=== PATIENT | female | born 1975 | race Caucasian/White ===

== ENCOUNTER 2020-08-16 12:25 | Outpatient (CLI) | payer OTHER, SELFPAY ==
--- NOTE | 2020-08-16 12:55 | MM_ITS ---
WS: [id number] BILATERAL DIGITAL SCREENING MAMMOGRAPHY WITH CAD CLINICAL INFORMATION: SCREEN HISTORY: Screening mammogram. No current complaints. COMPARISON: 2016 TECHNIQUE: Bilateral CC and MLO views. FINDINGS: The breasts are composed of heterogeneous fibroglandular density tissue, which can limit the detectio n of small underlying mass lesions. No suspicious mass, asymmetry, calcifications, or architectural d istortion. No evidence of malignancy. MM/[place] [id number] IMPRESSION: BI-RADS: 1-Negative FOLLOW UP: 1 Year Follow-up Recommend return to annual screening mammography.
== END 2020-08-16 12:26 | disposition home or self-care (01) ==
LOC: RADSHAW 12:29
PROVIDERS: PCP Nurse Practitioner Family; Visit Provider Nurse Practitioner Family
DX: Z12.31 Encounter for screening mammogram for malignant neoplasm of breast (principal)
CPT/HCPCS: 77067

== ENCOUNTER 2021-04-26 11:29 | Inpatient (IN) | payer SELFPAY ==
[2021-04-26] VITALS (18 sets, daily range): BP systolic 100–137; BP diastolic 53–78; PULSE 88–118; RESP 15–18; TEMP 36.6–37.2; O2SAT 96–100
--- NOTE | 2021-04-26 12:29 | W.ED.GENADLT ---
HPI - General Adult General: Chief complaint: Vaginal Bleeding Stated complaint: HEAVY VAGINAL BLEEDING SINCE 04.08.21 Time Seen by Provider: 04/26/21 12:02 History of Present Illness: HPI narrative: Patient is a 45-year-old female presents emergency room with heavy vaginal bleeding since 04/16/2021. No prior hx of menorrhagia. Her period began at 04/09 has not resolved. Around 04/16/2021, patient has noted that she was going through more than 8 pads a day. Patient's bleeding has not improved. Patient feels lightheaded, mildly short of breath and came to the emergency room for evaluation. She is not on any blood thinner. Patient denies any urinary symptoms, abdominal complaints, nausea/vomiting, melena/hematochezia, hemoptysis, or other source of bleeding. No family history of coagulopathy. Onset: heavy bleeding since 04/16/2021 Duration:ongoing Location:home Severity:moderate/severe Review of Systems Narrative: Constitutional: No fever, no chills. HEENT: No vision changes CV: No chest pain, no palpitations PULM: no cough, no dyspnea. GI: No abdominal pain, no N/V/D. : No dysuria, +vaginal bleeding MSKEL: No muscle pain SKIN: No new rashes, no lesions. NEURO: No headache, no focal weakness. HEME: No visible bruises PSYCH: Normal mood Physical Exam Narrative: EXAM NARRATIVE: Head: Atraumatic Eyes: PERRL, conjunctiva without injection, +pale conjunctiva ENT: Mucous membrane moist NECK: Supple, ROM intact LUNGS: LCTAB, no crackles/rhonchi CV: Sinus tachycardia ABDN: Soft, nontender in all quadrants EXTREMITY: Normal ROM SKIN: No rash or erythema NEURO: Awake and alert, no focal motor deficits PSYCH: Normal mood and affect : Exam supervised by Alexandra. + Small trickle of blood emanating from cervical os, blood clots visualized in vaginal vault, no active source of bleeding Course Vital Signs: Vital signs: Vital Signs Temperature 98.1 F 04/26/21 11:54 Pulse Rate 94 04/26/21 13:55 Respiratory Rate 17 04/26/21 13:55 Blood Pressure 137/72 04/26/21 13:55 Pulse Oximetry 100 04/26/21 13:55 MDM - General Adult MDM Narrative: Medical decision making narrative: 45-year-old female presents emergency room for evaluation of heavy vaginal bleeding since 04/16/2021. On exam, patient appears to be pale and noted to be tachycardic to the 110s. Hemoglobin of 3.5 today. Patient s/p 2 units of uncrossed blood Case was Dr. Winn who recommended IV conjugated 25mg. Patient has no risk factors for VTE and no hx of smoking. Disposition: OB floor Lab Data: Labs: Lab Results 04/26/21 04/26/21 04/26/21 13:20 13:20 13:20 WBC 10.9 10^3/uL H 10 ^3/uL (4.0-10.0) RBC 2.13 10^6/uL L 10 ^6/uL (4.1-5.3) Hgb 3.5 g/dL L* g/dL (11.5-15.3) Hct 13.8 % L* % (37.0-47.0) MCV 64.8 fl L fl (81-99) MCH 16.4 pg L pg (28.0-34.0) MCHC 25.4 g/dL L g/dL (30.0-36.0) RDW 20.4 % H % (12.1-15.1) Plt Count 478 10^3/cmm H 10 ^3/cmm (130-400) MPV 10.3 fL fL (7.4-10.4) Neut % (Auto) 69.9 % % Lymph % (Auto) 20.2 % % [place] % (Auto) 6.0 % % Eos % (Auto) 2.1 % % Baso % (Auto) 0.1 % % Neut # (Auto) 7.64 10^3/uL 10^3 /uL (1.8-7.7) Lymph # (Auto) 2.2 10^3/uL 10^3/ uL (0.8-4.8) [place] # (Auto) 0.7 10^3/uL 10^3/ uL (0.2-0.9) Eos # (Auto) 0.2 10^3/uL 10^3/ uL (0.0-0.8) Baso # (Auto) 0.0 10^3/uL 10^3/ uL (0.0-0.1) Nucleated RBC % (a uto) 0 % % Nucleated RBCs # 0.0 /100WBC /100W BC PT INR Sodium 136 mmol/L mmol/L (136-145) Potassium 4.1 mmol/L mmol/L (3.5-5.1) Chloride 104 mmol/L mmol/L (98-107) Carbon Dioxide 18 mmol/L L mmol/ L (22-29) Anion Gap 18.1 (5-19) BUN 9 mg/dL mg/dL (6-20) Creatinine 0.7 mg/dL mg/dL (0.5-0.9) GFR Calculation 90.9 mL/min mL/mi n (90-130) Glucose 91 mg/dL mg/dL (65-115) Calculated Osmolal ity 280 mOsm/kg L mOs m/kg (285-295) Calcium 8.0 mg/dL L mg/dL (8.5-10.5) HCG, Qual Negative (Negative) Blood Type Rho(D) Type Antibody Screen Crossmatch 04/26/21 04/26/21 13:20 13:20 WBC RBC Hgb Hct MCV MCH MCHC RDW Plt Count MPV Neut % (Auto) Lymph % (Auto) [place] % (Auto) Eos % (Auto) Baso % (Auto) Neut # (Auto) Lymph # (Auto) [place] # (Auto) Eos # (Auto) Baso # (Auto) Nucleated RBC % (a uto) Nucleated RBCs # PT 14.50 SECONDS SEC ONDS (12.1-14.9) INR 1.09 (0.8-1.2) Sodium Potassium Chloride Carbon Dioxide Anion Gap BUN Creatinine GFR Calculation Glucose Calculated Osmolal ity Calcium HCG, Qual Blood Type A Negative Rho(D) Type Negative Antibody Screen Negative Crossmatch See Detail Discharge Plan Discharge Prescriptions: No Action Euthyrox 75 mcg tablet 75 mcg PO DAILY RF: 0 pantoprazole 40 mg tablet,delayed release (DR/EC) 40 mg PO DAILY RF: 0 zolpidem 10 mg tablet 10 mg PO BEDTIME PRN (Reason: Insomnia) RF: 0 albuterol sulfate 90 mcg/actuation HFA aerosol inhaler 2 puff INHALATION Q6H PRN (Reason: Shortness Of Breath) RF: 0 Coding Level of Care Code ED 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
[2021-04-26] MEDS: sodium chloride 0.9% 1,000 ML 999 ML IV ×2 (13:50→13:52)
[2021-04-26 13:54] LABS: Basophils % 0.1 %; Eosinophils # 0.2 10^3/uL (0.0-0.8); Eosinophils % 2.1 %; Lymphocytes # 2.2 10^3/uL (0.8-4.8); Lymphocytes % 20.2 %; Mean Corpuscular HGB Conc 25.4 g/dL (30.0-36.0); Mean Corpuscular Hemoglobin 16.4 pg (28.0-34.0); Mean Corpuscular Volume 64.8 fl (81-99); Mean Platelet Volume 10.3 fL (7.4-10.4); Monocytes # 0.7 10^3/uL (0.2-0.9); Neutrophils # 7.64 10^3/uL (1.8-7.7); Neutrophils % 69.9 %; Nucleated Red Blood Cells % 0 %; Platelet Count 478 10^3/cmm (130-400); Red Blood Count 2.13 10^6/uL (4.1-5.3); Red Cell Distribution Width 20.4 % (12.1-15.1); White Blood Count 10.9 10^3/uL (4.0-10.0)
[2021-04-26 14:06] LABS: INR 1.09 (0.8-1.2)
[2021-04-26 14:11] LABS: HCG, Serum Qual Negative (Negative)
[2021-04-26 14:12] LABS: Hematocrit 13.8 % (37.0-47.0); Hemoglobin 3.5 g/dL (11.5-15.3)
[2021-04-26 14:13] LABS: Anion Gap 18.1 (5-19); Blood Urea Nitrogen 9 mg/dL (6-20); Carbon Dioxide 18 mmol/L (22-29); Chloride 104 mmol/L (98-107); Glomerular Filtration Rate 90.9 mL/min (90-130); Glucose 91 mg/dL (65-115); Osmolality Calculated 280 mOsm/kg (285-295); Potassium 4.1 mmol/L (3.5-5.1); Sodium 136 mmol/L (136-145)
--- NOTE | 2021-04-26 14:15 | USR_ITS ---
PROCEDURE INFORMATION: Exam: US Pelvis, Transvaginal Exam date and time: 04/26/2021 2:15 PM Age: 45 years old Clinical indication: Menstruation abnormalities; Other: Vaginal bleeding since 04-08-2021; Additional info: Eval for uterus TECHNIQUE: Imaging protocol: Real-time transvaginal pelvic ultrasound with image documentation. Transvaginal imaging was used for better evaluation of the endometrium, adnexa, and/or cervix. COMPARISON: No relevant prior studies available. FINDINGS: Uterus: Uterus is normal. Endometrial stripe is heterogenous and measures 2 cm. This finding is nonspecific or The uterus measures 11 cm x 5.6 cm x 5.7 cm Right ovary/adnexa: Not identified Left ovary/adnexa: Not identified Intraperitoneal space: No free fluid. US/US transvaginal [id number] IMPRESSION: 1. Thickened heterogenous endometrial tissues. 2. Otherwise negative uterine myometrium 3. The ovaries are not visible
[2021-04-26] MEDS: ondansetron 2 mg/ML SDV 2 mL 8 MG IVP (15:09)
[2021-04-26] MEDS: sodium chloride 0.9% 100 mL Bag 50 ML IV (15:09)
[2021-04-26] MEDS: estrogens Conjugated 25 mg/5 mL SDV IVP (15:32)
[2021-04-26 16:31] LABS: Partial Thromboplastin Time 19.4 SECONDS (23.9-36.7)
--- NOTE | 2021-04-26 17:45 | PM.OBGYHP ---
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 Cruz is a 45-year-old 2 para 2-0-0-2 with an LMP of 04/08/2021 who presents to the emergency room on 04/26/2021 with reports of feeling tired, shortness of breath and heavy vaginal bleeding. She states that her previous. Was in February as scheduled. She always bleeds very heavy lasting for 5 to 6 days and usually goes for about a pad an hour for the first 2 or 3 days. She has a lot of cramping and was placed on naproxen for this and she felt like this did help the extent of her bleeding. When she started her cycle as scheduled on 04/08/2021 it was different because it was much perfect binder setter with a lot of spotting however from about 04/16/2021 she started to have very heavy bleeding with about 1 pad an hour. When her bleeding did not get better and she started to feel tired and shortness of breath she came in for evaluation. She states that she and her primary care provider were evaluating her bleeding however she had not had any lab work or anything done in terms of its evaluation Review of Systems General: Reports: 10 or more systems reviewed and unremarkable except in HPI and below Const: Reports: fatigue; Denies: fever(s), chills, change in appetite, change in weight, malaise or change in sleep pattern Eyes: Denies: change in vision, eye discomfort, eye discharge or seeing flashes ENMT: Denies: throat pain, odynophagia, hoarseness, bleeding gums, ear discharge, nasal discharge or nasal congestion Card: Denies: chest pain, irregular heart rhythm, edema, swelling of feet/ankles, dyspnea on exertion or leg pain with exertion Resp: Denies: dyspnea, productive cough, wheezing or chest congestion GI: Reports: abdominal pain and nausea; Denies: vomiting, heartburn, diarrhea, constipation, change in bowel habits or hematochezia : Reports: vaginal bleeding and dysmenorrhea; Denies: flank pain, dysuria, urinary frequency, urinary urgency, urinary incontinence, genital lesions, vaginal odor, vaginal discharge, change in menstrual flow, prolapse symptoms, dyspareunia or sexual dysfunction Musc: Denies: neck pain, back pain, joint pain, joint swelling or muscle cramps Skin/Breast: Denies: rash, pruritus, breast tenderness, nipple discharge or breast mass Neuro: Denies: headache(s), numbness in extremities or seizure-like activity Psych: Denies: anxiety, depression, mood swings or change in appetite Endo: Denies: cold intolerance, flushing, hot flashes or change in body appearance Buddy/Lymph: Denies: easy bruising, easy bleeding or enlarged lymph nodes All/Imm: Denies: urticaria, tongue swelling, acute wheezing or itchy eyes Medications/Allergies Home Medications Medication Instructions Recorded Confirmed Last Taken Type albuterol sulfate 2 puff INHALATION Q6H PRN 04/26/21 04/26/21 Unknown History levothyroxine [Euthyrox] 75 mcg PO DAILY 04/26/21 04/26/21 04/26/21 History pantoprazole 40 mg PO DAILY 04/26/21 04/26/21 04/26/21 History zolpidem 10 mg PO BEDTIME PRN 04/26/21 04/26/21 Unknown History Allergies Allergy/AdvReac Type Severity Reaction Status Date / Time No Known Allergies Allergy Verified 04/26/21 11:57 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 She states that since her mid 30s her cycles have been very heavy with passing clots and lots of cramping but she has never had this evaluated before. Sexual History: Sexual History Comment: [place] STD History Comment: Denies history of sexually transmitted infections in the past Contraception: Contraception History Comment: Did use Depo-Provera between her pregnancies for about 1 year and she remained amenorrheic on this. -Has not used any hormones since her had a vasectomy History History History 2 Term 2 Miscarriages/Ectopic 0 0 Living Children 2 Other History: CD X 2() Vitals/I&O/Wt Last Vital Signs Temp 97.9 F 04/26/21 16:00 Pulse 88 04/26/21 17:40 Resp 15 04/26/21 17:40 BP 112/58 04/26/21 17:40 Pulse Ox 98 04/26/21 17:40 04/26/21 04/26/21 04/26/21 06:59 14:59 22:59 Intake Total 1000 / 1000 1700 / 2700 Balance 1000 / 1000 1700 / 2700 Weight last 48 hrs Weight 200 lb Physical Exam Narrative: EXAM NARRATIVE: General: well developed, well nourished, in no acute distress Neuro/Psych: alert, oriented to time, place and person. Neck: Deferred Heart: S1-S2 heard, regular rate and rhythm. Lungs: Clear to auscultation bilaterally. Breast: Deferred Abdomen: Soft, obese, nontender, no rebound, no guarding, hepatosplenomegaly, no umbilical hernia Legs: No pedal edema no calf tenderness. Negative Homans sign Back: No CVA tenderness Skin: Normal over abdomen, well-healed Pfannenstiel scar noted External genitalia: Appears normal, no lesions, normal hair Urethral meatus: Normal size, normal location Urethra: Nontender, no masses Bladder: Nontender Vagina: Appears normal, normal estrogen, no lesion, slow trickle of blood from cervix, no lesions Cervix: Appears normal, no CMT, no discharge Uterus: 8 to 10 weeks, anteverted, mobile, nontender Adnexa: No obvious adnexal masses or tenderness-exam limited by patient body habitus. Perineum/anus: Intact Rectum: Deferred Data : 04/27/21 03:05 04/26/21 13:20 Results SOLDERER DIPPER Labs 04/26/2021([facility])--CBC-10.9> 3.5/13.8>478-----> received 4 units of PRBC 04/27/2021([facility])-follow-up CBC posttransfusion---12.7<8.9/29.6> 389 PAP Denies history of abnormal Pap smears in the past SOLDERER DIPPER Ultrasound 1) 04/26/2021([facility]/ED-AUB and anemia) ------> the uterus is heterogenous measuring 11 x 5.6 x 5.7 cm. Bilateral ovaries are not seen. No free fluid noted. The endometrium appears heterogenous measuring 2 cm. Mammogram 08/16/2020 -----([facility])----> BI-RADS 1. Negative. Recommend annual screening mammogram Colonoscopy Has never needed a colonoscopy A&P Assessment and plan (1) Abnormal uterine bleeding (AUB): -Discussed with patient and her the on exam today that she is not really actively bleeding. The estrogen that she is received looks like it is working. Her immediate concern is her anemia and she will need to stay to get transfused. I would like her to stay n.p.o. for now and should she start bleeding heavily she may need surgery. - Discussed surgery of dilation and curettage and discussed with her this should help her bleeding. Discussed hysterectomy would be a last option as we never want to do this in an emergent fashion. Discussed risks of D&C-bleeding, infection, anesthesia risk, damage to surrounding organs and possible uterine perforation, possible laparoscopy, etc. we will sign consents just in case she needs to have surgery but I anticipate that as long as her bleeding stays under control like aspirin we should not have to have surgery -Admit to observation and as long as her bleeding is under control anticipate discharge home tomorrow. -N.p.o. for now until we assess how her bleeding is doing -She may need 1 more dose of IV estrogen. Risks of IV estrogen discussed with patient including risk of DVT PE stroke etc. Zofran as needed for nausea -Depending on the extent of her bleeding we may transition to p.o. estrogen. -Strict pad count, strict I's and O's, bedrest with bathroom privileges with assist -Frequent vital signs although they are normal for someone who is so anemic. -All her questions were answered and she agrees with the current plan of care. I spent 45 minutes with the patient in discussion and counseling as documented above This documentation was created by [employer] rug cleaner helper software (known for inherent rug cleaner helper error). Every effort was made to assure accuracy of rug cleaner helper. Any obvious errors or omissions should be clarified with the author of the document. Status: Acute (2) Anemia: -Patient is already received 2 units of blood by the time I saw her. She is doing well with this. Discussed that I would recommend a total of at least 4 of 5 units of blood to bring her hemoglobin decreased to 8. Discussed that after 4 units of blood I would repeat levels to see where she is at. Discussed that she will more than likely need to be on iron upon discharge and she will need follow-up blood work to ensure these levels are normal. -We will follow up hemoglobin after transfusion -Crossmatched 3 additional units of blood and transfuse 2 of these. Status: Acute Attestations Medical Necessity Statement*: Patient will need to stay for 1 midnight to observe bleeding Coding Level of Care Code Acute Digital Associate Media Director for [facility] Diagnoses Abnormal uterine bleeding (AUB) N93.9 Anemia D64.9
[2021-04-26] MEDS: promethazine 25 mg/mL SDV 1 mL IM (19:23)
[2021-04-26] MEDS: HYDROcodone-acetaminophen 5-325 mg Tablet 1 TAB PO (19:24)
--- NOTE | 2021-04-26 21:04 | PC.NURSE ---
patient had a small sip of water to take her pain medication with.
[2021-04-26] MEDS: zolpidem 5 mg Tablet 10 MG PO (22:02)
[2021-04-26] MEDS: dextrose 5%-lactated ringers 1,000 ML 100 ML IV (22:30)
[2021-04-27] VITALS (8 sets, daily range): BP systolic 103–121; BP diastolic 63–73; PULSE 80–96; RESP 15–18; TEMP 36.6–36.8; O2SAT 96–97
[2021-04-27 03:35] LABS: Basophils # 0.1 10^3/uL (0.0-0.1); Basophils % 0.7 %; Eosinophils # 0.3 10^3/uL (0.0-0.8); Eosinophils % 2.7 %; Hematocrit 29.6 % (37.0-47.0); Hemoglobin 8.9 g/dL (11.5-15.3); Lymphocytes # 2.4 10^3/uL (0.8-4.8); Lymphocytes % 19.1 %; Mean Corpuscular HGB Conc 30.1 g/dL (30.0-36.0); Mean Corpuscular Hemoglobin 23.7 pg (28.0-34.0); Mean Corpuscular Volume 78.9 fl (81-99); Mean Platelet Volume 10.1 fL (7.4-10.4); Monocytes # 0.7 10^3/uL (0.2-0.9); Monocytes % 5.3 %; Neutrophils # 9.04 10^3/uL (1.8-7.7); Neutrophils % 71.1 %; Nucleated Red Blood Cells % 0 %; Platelet Count 389 10^3/cmm (130-400); Red Blood Count 3.75 10^6/uL (4.1-5.3); Red Cell Distribution Width 26.3 % (12.1-15.1); White Blood Count 12.7 10^3/uL (4.0-10.0)
--- NOTE | 2021-04-27 05:44 | PC.NURSE ---
patient has had 4 pad changes with scant bleeding. patient has also passed 3 quarter sized clots. one at 0150, one at 0330 and another at 0430. md aware.
--- NOTE | 2021-04-27 12:14 | P.DS_ITS ---
Discharge Providers PORTABLE TRACK LINE MARKER Date of Admission: 04/26/21 14:55 Date of Discharge: 04/27/21 Attending Provider at Admission: Leti Burrows MD Attending Provider at Discharge: Leti Burrows MD Primary Care Provider: Short stay summary: Ms. Cruz is a 45-year-old 2 para 2-0-0-2 with an LMP of 04/08/2021 who presents to the emergency room on 04/26/2021 with reports of feeling tired, shortness of breath and heavy vaginal bleeding. She states that her previous. Was in February as scheduled. She always bleeds very heavy lasting for 5 to 6 days and usually goes for about a pad an hour for the first 2 or 3 days. She has a lot of cramping and was placed on naproxen for this and she felt like this did help the extent of her bleeding. When she started her cycle as scheduled on 04/08/2021 it was different because it was much herd tester with a lot of spotting however from about 04/16/2021 she started to have very heavy bleeding with about 1 pad an hour. When her bleeding did not get better and she started to feel tired and shortness of breath she came in for evaluation. She states that she and her primary care provider were evaluating her bleeding however she had not had any lab work or anything done in terms of its evaluation. In the emergency room she received 2 units of PRBCs and received a single dose of IV estrogen 25 mg. Strict blood count was started and she had just minimal bleeding. Pain was well-controlled without any medication and she did receive Zofran for nausea. She was then transferred onto the [facility] floor where she received an additional 2 units of PRBCs. CBC 4 hours later after 4 units of PRBCs showed a hemoglobin of 8.9. Vital signs were stable and she denied dizziness shortness of breath and chest pain. She tolerated regular diet and was ambulating well and had adequate urine output. She was discharged home on 04/27/2021 with instructions to take Glenda 05/15 in a tapering fashion-2 pills a day for 5 days followed by 1 pill to complete the pack followed by a pill free timeframe of 5 days and then starting the second pack. She will follow up with me as an outpatient in 3 weeks. Patient to maintain a strict menstrual calendar and pad count. And bring this to her next visit. Message sent to the clinic to get patient scheduled in 3 weeks. -Pelvic rest until cleared by me-no other restrictions -Emergency room precautions reviewed-cardiovascular risks of estrogen-containing hormones discussed with patient and ER precautions reviewed. Diagnoses at Discharge Discharge Diagnosis (1) Abnormal uterine bleeding (AUB): Status: Acute (2) Anemia: Status: Acute Reason for Visit Reason for Visit: HEAVY VAGINAL BLEEDING SINCE 04.08.21 History History History 2 Term 2 Miscarriages/Ectopic 0 0 Living Children 2 Other History: CD X 2() Discharge Data Data Completed and Pending: Completed Studies During Hospitalization Category Date Time Status US transvaginal 7 [id number] Urgent Ultrasound 04/26/21 14:15 Completed Pending at discharge Category Date Time Status Leukocyte Reduced RBC Routine Lab 04/26/21 13:20 Results Type and Screen R outine Lab 04/26/21 13:20 Results Labs from last 24 hours 04/27/21 04/26/21 04/26/21 03:05 13:20 13:20 WBC 12.7 H RBC 3.75 L Hgb 8.9 L D Hct 29.6 L D MCV 78.9 L D MCH 23.7 L D MCHC 30.1 D RDW 26.3 H Plt Count 389 MPV 10.1 Neut % (Auto) 71.1 Lymph % (Auto) 19.1 [place] % (Auto) 5.3 Eos % (Auto) 2.7 Baso % (Auto) 0.7 Neut # (Auto) 9.04 H Lymph # (Auto) 2.4 [place] # (Auto) 0.7 Eos # (Auto) 0.3 Baso # (Auto) 0.1 Nucleated RBC % (a uto) 0 Nucleated RBCs # 0.0 PT 14.50 INR 1.09 APTT 19.4 L Sodium Potassium Chloride Carbon Dioxide Anion Gap BUN Creatinine GFR Calculation Glucose Calculated Osmolal ity Calcium HCG, Qual Blood Type A Negative Rho(D) Type Negative Antibody Screen Negative Crossmatch See Detail 04/26/21 04/26/21 04/26/21 13:20 13:20 13:20 WBC 10.9 H RBC 2.13 L Hgb 3.5 L* Hct 13.8 L* MCV 64.8 L MCH 16.4 L MCHC 25.4 L RDW 20.4 H Plt Count 478 H MPV 10.3 Neut % (Auto) 69.9 Lymph % (Auto) 20.2 [place] % (Auto) 6.0 Eos % (Auto) 2.1 Baso % (Auto) 0.1 Neut # (Auto) 7.64 Lymph # (Auto) 2.2 [place] # (Auto) 0.7 Eos # (Auto) 0.2 Baso # (Auto) 0.0 Nucleated RBC % (a uto) 0 Nucleated RBCs # 0.0 PT INR APTT Sodium 136 Potassium 4.1 Chloride 104 Carbon Dioxide 18 L Anion Gap 18.1 BUN 9 Creatinine 0.7 GFR Calculation 90.9 Glucose 91 Calculated Osmolal ity 280 L Calcium 8.0 L HCG, Qual Negative Blood Type Rho(D) Type Antibody Screen Crossmatch Vitals: Last Vital Signs Temp 97.8 F 04/27/21 09:57 Pulse 80 04/27/21 10:30 Resp 16 04/27/21 10:30 BP 120/70 04/27/21 10:30 Pulse Ox 97 04/27/21 06:00 Results CORRECTIONAL SUPERVISING COOK Labs 04/26/2021([facility])--CBC-10.9> 3.5/13.8>478-----> received 4 units of PRBC 04/27/2021([facility])-follow-up CBC posttransfusion---12.7<8.9/29.6> 389 [employer]RECTIONAL SUPER[employer]ING [employer]OOK Ultrasound 1) 04/26/2021([facility]/ED-AUB and anemia) ------> the uterus is heterogenous measuring 11 x 5.6 x 5.7 cm. Bilateral ovaries are not seen. No free fluid noted. The endometrium appears heterogenous measuring 2 cm. Discharge Plan Discharge Patient Disposition: Home Condition: Stable Prescriptions: 05/15 (21) 1-20 mg-mcg tablet 1 tab PO DAILY Qty: 21 RF: 1 ferrous sulfate 325 mg (65 mg iron) tablet 325 mg PO BID Qty: 30 RF: 0 Continued Euthyrox 75 mcg tablet 75 mcg PO DAILY RF: 0 pantoprazole 40 mg tablet,delayed release (DR/EC) 40 mg PO DAILY RF: 0 zolpidem 10 mg tablet 10 mg PO BEDTIME PRN (Reason: Insomnia) RF: 0 albuterol sulfate 90 mcg/actuation HFA aerosol inhaler 2 puff INHALATION Q6H PRN (Reason: Shortness Of Breath) RF: 0 Discharge Orders: Discharge Order (Routine); Ordered 04/27/21 Ordered By: Leti Burrows Referrals: Leti Burrows MD [Physician] - Discharge Diet: Regular Discharge Activity: Limit activity as instructed Patient Instructions: Opioid Safety Activity Restrictions/Additional Instructions: Pelvic rest until cleared by me, emergency room precautions reviewed-strict menstrual calendar and pad count Discharge Attestations PORTABLE TRACK LINE MARKER Time Spent in Discharge Care*: greater than 30 min Coding Level of Care Code Acute Motor Boss for g Fwd Diagnoses Abnormal uterine bleeding (AUB) N93.9 Anemia D64.9
== END 2021-04-27 12:45 | disposition home or self-care (01) | DRG 760 ==
LOC: ER 12:09 → OBGYN 16:00
PROVIDERS: Admitting Provider Obstetrics & Gynecology; Emergency Provider Emergency Medicine; PCP Nurse Practitioner Family; Visit Provider Obstetrics & Gynecology
DX: N93.9 Abnormal uterine and vaginal bleeding, unspecified (principal); D62 Acute posthemorrhagic anemia; E03.9 Hypothyroidism, unspecified; K21.9 Gastro-esophageal reflux disease without esophagitis
CPT/HCPCS: 36415; 36430; 76830; 80048; 84703; 85025; 85610; 85730; 86850; 86900; 86920; 96372; 96374; 96376; 99285; J1410; J2405; J2550; J7030; P9016

== ENCOUNTER → 2021-06-25 12:05 | Outpatient (BNVA) | payer OTHER, SELFPAY | PROVIDERS: PCP Nurse Practitioner Family; Visit Provider Obstetrics & Gynecology | DX: N93.9 Abnormal uterine and vaginal bleeding, unspecified (principal) | CPT/HCPCS: 76830 ==

== ENCOUNTER → 2021-07-01 12:55 | Outpatient (BNVA) | payer OTHER, SELFPAY | PROVIDERS: PCP Nurse Practitioner Family; Visit Provider Obstetrics & Gynecology | DX: N93.9 Abnormal uterine and vaginal bleeding, unspecified (principal) | CPT/HCPCS: 87624 ==

== ENCOUNTER 2021-09-05 11:38 | Outpatient (CLI) | payer OTHER, SELFPAY ==
--- NOTE | 2021-09-05 11:44 | MM_ITS ---
WS: [id number] BILATERAL SCREENING DIGITAL BREAST TOMOSYNTHESIS MAMMOGRAM WITH CAD HISTORY: SCREENING COMPARISON: 08/16/2020, 10/29/2016 and 07/25/2014 Bilateral CC and MLO views with tomosynthesis and synthetic mammography submitted. Computer aided det ection analyzed. Breast composition: The breasts are extremely dense, which lowers the sensitivity of mammography. No suspicious masses, microcalcifications or architectural distortion. Dense asymmetry in each breast. N o underlying mass is noted on the tomosynthesis. MM/[place] [id number] IMPRESSION: BI-RADS: 2-Benign FOLLOW UP: 1 Year Follow-up
== END 2021-09-05 11:39 | disposition home or self-care (01) ==
LOC: RAD 11:40
PROVIDERS: PCP Nurse Practitioner Family; Visit Provider Obstetrics & Gynecology
DX: Z12.31 Encounter for screening mammogram for malignant neoplasm of breast (principal)
CPT/HCPCS: 77063; 77067

== ENCOUNTER 2022-05-19 13:07 | Observation (INO) | payer OTHER, SELFPAY ==
[2022-05-15 09:52] VITALS: BMI 33.5
[2022-05-15 10:50] LABS: Basophils % 0.4 %; Eosinophils # 0.2 10^3/uL (0.0-0.8); Eosinophils % 2.3 %; Lymphocytes # 1.3 10^3/uL (0.8-4.8); Lymphocytes % 17.2 %; Mean Corpuscular HGB Conc 31.7 g/dL (30.0-36.0); Mean Corpuscular Hemoglobin 28.7 pg (28.0-34.0); Mean Corpuscular Volume 90.5 fl (81-99); Mean Platelet Volume 10.3 fL (7.4-10.4); Monocytes # 0.4 10^3/uL (0.2-0.9); Monocytes % 5.3 %; Neutrophils # 5.61 10^3/uL (1.8-7.7); Neutrophils % 74.5 %; Nucleated Red Blood Cells % 0 %; Platelet Count 348 10^3/cmm (130-400); Red Blood Count 4.53 10^6/uL (4.1-5.3); Red Cell Distribution Width 13.2 % (12.1-15.1); White Blood Count 7.5 10^3/uL (4.0-10.0)
[2022-05-15 11:08] LABS: Anion Gap 13.1 (5-19); Blood Urea Nitrogen 10 mg/dL (6-20); Calcium 9.6 mg/dL (8.5-10.5); Carbon Dioxide 25 mmol/L (22-29); Chloride 102 mmol/L (98-107); Glomerular Filtration Rate 77.6 mL/min (90-130); Glucose 91 mg/dL (65-115); Osmolality Calculated 281 mOsm/kg (285-295); Potassium 4.1 mmol/L (3.5-5.1); Sodium 136 mmol/L (136-145)
--- NOTE | 2022-05-15 13:26 | P.ANESASSM_ITS ---
Pre-Anesthetic Assessment Height/Weight: Height 1.63 m Weight 88.451 kg Operation Date: 05/19/22 10:10 Proposed Procedures p Laparoscopic assisted vaginal hysterectomy, bilateral salpingectomy 89807 N93.9,E03.9(Not Applicable) - Viry Johnson MD s Laparoscopic Salpingectomy(Bilateral) - Viry Johnson MD Familial anesthetic complications: none Was Beta Ivy taken within 24 hours: N/A Was Clonidine taken within 24 hours: N/A Social No alcohol and No tobacco Exam alert, oriented x 3, clear to auscultation bilaterally and regular rate & rhythm Airway Submandibular: within normal limits Cervical ROM: within normal limits Mallampati: Class II Dentition: full CV/HEM Anemia GI Gastroesophageal Reflux Disease Metabolic Thyroid Disease Anesthetic Plan ASA status: 2 Anesthesia: General Medications/Allergies Home Medications Medication Instructions Recorded Confirmed Last Taken Type levothyroxine 75 mcg tablet 75 mcg PO DAILY 04/26/21 05/15/22 05/15/22 History (Euthyrox) zolpidem 10 mg tablet 10 mg PO BEDTIME PRN Insomnia 04/26/21 05/15/22 05/15/22 History pantoprazole 40 mg tablet,delayed 40 mg PO PRN PRN Acid Reflux 05/12/21 05/15/22 05/15/22 History release Allergies Allergy/AdvReac Type Severity Reaction Status Date / Time adhesive tape Allergy ALGY-Rash Verified 05/15/22 09:50 [facility] Anesthesia Medical History GERD (gastroesophageal reflux disease) Controlled on medication managed by her primary care provider -has never had an endoscopy Hypothyroidism Diagnosed in her 30s and has been on medication managed by her primary care provider. 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 Dickinson Surgical History Hx of tonsillectomy At the age of 13 S/P laparoscopic cholecystectomy 2010 Status post delivery X 2 1996, 1999 Family History Grandmother Diabetes maternal Mother Hypertension Polycythemia vera Denies family history of Colon cancer Ovarian cancer Heart disease Hyperlipidemia Breast cancer Uterine cancer Thyroid condition Stroke Female Reproductive History Date of last menstrual period: 04/08/21 Data Anesthesia 05/15/22 10:10 05/15/22 10:10 Short CBC 05/15/22 Range/Units 10:10 WBC 7.5 (4.0-10.0) 10^3/uL Hgb 13.0 (11.5-15.3) g/dL Hct 41.0 (37.0-47.0) % MCV 90.5 (81-99) fl Plt Count 348 (130-400) 10^3/cmm Neut % (Auto) 74.5 % Neut # (Auto) 5.61 (1.8-7.7) 10^3/uL BMP 05/15/22 10:10 Sodium 136 Potassium 4.1 Chloride 102 Carbon Dioxide 25 BUN 10 Creatinine 0.8 Glucose 91 Calcium 9.6 Blood Bank 05/15/22 10:10 Blood Type A Negative Rho(D) Type Negative Antibody Screen Negative Cardiac Studies: No Data to Display
[2022-05-19] VITALS (13 sets, daily range): BP systolic 107–139; BP diastolic 64–96; PULSE 60–108; RESP 15–18; TEMP 36.3–37.6; O2SAT 93–100; BMI 33.5
[2022-05-19] MEDS: scopolamine 1.5 Patch 1 PATCH TRANSDERMA (09:02)
[2022-05-19] MEDS: acetaminophen 1,000 MG/100 ML PIGGYBACK 400 MG IV (09:02)
[2022-05-19] MEDS: gabapentin 300 mg Capsule PO (09:02)
[2022-05-19] MEDS: CELEcoxib 200 mg Capsule 400 MG PO (09:02)
[2022-05-19] MEDS: phenazopyridine 100 mg Tablet 200 MG PO ×3 (09:02→21:12)
[2022-05-19] MEDS: sodium chloride 0.9% 1,000 ML 30 ML IV (09:03)
--- NOTE | 2022-05-19 10:30 | W.PM.OPSUD ---
Surgery/Procedure H&P Update DATE OF PROCEDURE: May 19, 2022 DATE H&P PERFORMED: 05/15/22 H&P UPDATE INFORMATION: I have reviewed H&P completed within last 30 days, I have examined patient prior to procedure and No changes to prior documentation PREOP DIAGNOSIS: aub, anemia PLANNED PROCEDURE: Operation Date: 05/19/22 10:10 Proposed Procedures p Laparoscopic assisted vaginal hysterectomy, bilateral salpingectomy 12492 N93.9,E03.9(Not Applicable) - Viry Johnson MD s Laparoscopic Salpingectomy(Bilateral) - Viry Johnson MD Related Problem List Diagnoses (1) Anemia: (2) Abnormal uterine bleeding (AUB):
[2022-05-19] MEDS: ceFAZolin 2,000 MG in sodium chloride 0.9% (plus) 50 ML 100 MG IV ×2 (10:42→19:26)
[2022-05-19] MEDS: vasopressin 20 unit/mL INJ INJECTION (13:26)
--- NOTE | 2022-05-19 13:44 | PM.OP ---
Operative Report Date of procedure: May 19, 2022 Pre-op diagnosis: Preop Diagnosis aub, anemia Post-op diagnosis: same Post-op findings: 11 week uterus, normal appearing tubes and ovaries. Adhesions of the left adnexa to the colon Procedure done: LAVH. bilateral salpingectomy Specimens removed/disposition: Uterus and bilateral fallopian tubes to pathology Surgeon: Viry Johnson Anesthesia: General Estimated blood loss (mL): 200 IV fluids (mL): 1,300 Urine output (mL): 400 Complications: none Condition: stable Disposition: PACU Procedure: The patient was taken to the operating room where general anesthesia was administered and found to be adequate. She was prepped and draped in the normal sterile fashion in the dorsal lithotomy position in [facility]. A Mathias catheter was placed. A weighted speculum was placed into the vagina and the anterior lip of the cervix was grasped with a single tooth tenaculum. The Zumi uterine manipulator was placed. The weighted speculum was removed. The gloves were changed and attention was turned to the abdomen. A 5 mm supraumbilical incision was made. Using a 5 mm port with the camera, the port was placed into the abdomen. The abdomen was insufflated. Two low, lateral 5 mm ports were placed on the left and right under direct visualization from the camera. The right tube was grasped and elevated. Using the laparoscopic cautery, the mesosalpinx was divided between the ovary and tube. The tube was removed. On the left, the scissors were used to free the tube and ovary from the bowel. Then the same procedure was performed on the left. The uteroovarian ligaments as well as the round ligaments were ligated. Attention was then turned to the vaginal portion of the procedure. The weighted speculum was placed into the vagina. The zumi manipulator was removed. The single tooth tenaculum was removed and replaced with the lana's tenaculum. 10 mL of dilute Pitressin was injected at the vesicovaginal junction. A circumferential incision was made at the vesicovaginal junction and the vaginal mucosa reflected cephalad. The posterior peritoneum was entered sharply with the Metzenbaum scissors and the long weighted speculum replaced. Using the Matthew clamps the uterosacral ligaments were clamped cut and suture-ligated. The anterior peritoneum was entered sharply with the metzenbaum scissors. Then sequentially the uterine arteries and cardinal ligaments were clamped cut and suture-ligated. A single-tooth tenaculum was used to deliver the uterus. The remaining segement of the utero-ovarian ligaments were clamped cut and suture-ligated bilaterally and the specimen was removed. There was good hemostasis with only mild bleeding from the cuff. The peritoneum was closed with a pursestring using 2-0 Vicryl. The vaginal cuff was closed with 0 Vicryl in a running locked pattern incorporating the uterosacral ligaments into the lateral aspects of the vaginal cuff. The Mathias catheter was removed and the cystoscope advanced into the bladder. The patient was given pyridium and bilateral spill was noted. There were no injuries or deficits noted in the bladder. The cystoscope was removed and the Mathias was replaced. Vaginal packing was placed for good hemostasis. The gloves and gowns were changed and attention was turned to the abdomen. A second look showed no active bleeding in the abdomen and pelvis. The ports were closed with 2-0 monocryl with skin glue. The patient tolerated the procedure well. Sponge lap and needle counts were correct x3. She was taken to the recovery room in stable condition.
[2022-05-19] MEDS: dextrose 5%-lactated ringers 1,000 ML 125 ML IV ×2 (14:48→23:06)
[2022-05-19] MEDS: ketorolac 30 mg/mL INJ IVP ×2 (14:48→20:17)
--- NOTE | 2022-05-19 15:53 | ANE.PACU2 ---
Inpatient post-anesthesia follow up: Airway intact: Yes Vital signs: Temperature 98.3 F Pulse Rate 95 Respiratory Rate 16 Blood Pressure 122/64 Pulse Oximetry 93 Oxygen Delivery Me thod Room Air Oxygen Flow Rate 6 Fraction of Inspir ed Oxygen Hydration adequate: Yes Nausea and vomiting: No Pain level: 1 Mental status: Baseline
[2022-05-19] MEDS: HYDROcodone-acetaminophen 5-325 mg Tablet PO (17:51)
[2022-05-19] MEDS: docusate sodium 100 mg Capsule PO (17:52)
[2022-05-19] MEDS: ondansetron 2 mg/ML SDV 2 mL 4 MG IVP (20:17)
[2022-05-19] MEDS: zolpidem 5 mg Tablet 10 MG PO (21:12)
[2022-05-20 00:05] VITALS: BP 120/74; PULSE 88; RESP 15
[2022-05-20] MEDS: ketorolac 30 mg/mL INJ IVP (01:53)
[2022-05-20] MEDS: ceFAZolin 2,000 MG in sodium chloride 0.9% (plus) 50 ML 100 MG IV (02:52)
[2022-05-20 05:22] LABS: Hematocrit 37.3 % (37.0-47.0); Hemoglobin 11.9 g/dL (11.5-15.3); Mean Corpuscular HGB Conc 31.9 g/dL (30.0-36.0); Mean Platelet Volume 10.2 fL (7.4-10.4); Platelet Count 314 10^3/cmm (130-400); Red Cell Distribution Width 13.2 % (12.1-15.1); White Blood Count 14.1 10^3/uL (4.0-10.0)
[2022-05-20 08:30] VITALS: BP 119/77; PULSE 93; RESP 16; TEMP 37.2
[2022-05-20] MEDS: docusate sodium 100 mg Capsule PO (09:48)
[2022-05-20] MEDS: HYDROcodone-acetaminophen 5-325 mg Tablet PO (09:48)
[2022-05-20 11:00] VITALS: BP 131/80; PULSE 87; RESP 16; TEMP 36.6
--- NOTE | 2022-05-20 11:03 | PM.DCS ---
Discharge Providers Date of Admission: 05/19/22 13:07 Date of Discharge: May 20, 2022 Attending Provider at Admission: Viry Johnson MD Attending Provider at Discharge: Viry Johnson MD Primary Care Provider: Lazara Marx Diagnoses at Discharge Discharge Diagnosis (1) Anemia: Status: Acute (2) Abnormal uterine bleeding (AUB): Status: Acute Reason for Visit Reason for Visit: anemia, unspecified Hospital Course Hospital Course The patient was admitted for surgery. she did well postoperatively and was ready for discharge on day #1 Physical Exam Narrative: The patient is doing well this morning. She is tolerating a regular diet. She is ambulating well. Pain is well controlled Const: COMMON NORMALS: no acute distress, patient oriented x3, no limitations, healthy appearing, alert and well nourished GENERAL APPEARANCE: cooperative, comfortable, well kempt and well developed ORIENTATION/CONSCIOUSNESS: Yes awake, Yes oriented to person, Yes oriented to place and Yes oriented to time Resp: COMMON NORMALS: normal respiratory effort EFFORT & INSPECTION: Yes able to speak in complete sentences GI: COMMON NORMALS: Soft to palpation and non-tender PALPATION: Yes Soft to palpation Extremity: COMMON NORMALS: no calf tenderness Neuro: COMMON NORMALS: patient oriented x3 SENSORIUM/ORIENTATION: Yes alert, Yes oriented to person, Yes oriented to place and Yes oriented to time Psych: APPEARANCE: Yes well kempt Skin: WOUNDS: Yes surgical site (Clean/dry/covered) Urinary Catheter Management: Mathias: Cath Placed During This Visit: yes, but has since been removed by the nurse Reason for Continuing Indwelling Catheter: Decision to DC Catheter Urinary Catheter Date of Insertion: 05/19/22 Urinary Catheter Time of Insertion: 11:05 Date Urinary Catheter Removed: 05/20/22 Time Urinary Catheter Discontinued: 04:45 Discharge Data Studies Completed and Pending Pending at discharge Category Date Time Status Urine Culture Routine Lab 05/19/22 11:06 Received Pathology: Surgical [PTH] Routine Pth 05/19/22 13:45 Received Laboratory Results WBC 14.1 10^3/uL (4.0-10.0) H 05/20/22 05:09 RBC 4.10 10^6/uL (4.1-5.3) 05/20/22 05:09 Hgb 11.9 g/dL (11.5-15.3) 05/20/22 05:09 Hct 37.3 % (37.0-47.0) 05/20/22 05:09 MCV 91.0 fl (81-99) 05/20/22 05:09 MCH 29.0 pg (28.0-34.0) 05/20/22 05:09 MCHC 31.9 g/dL (30.0-36.0) 05/20/22 05:09 RDW 13.2 % (12.1-15.1) 05/20/22 05:09 Plt Count 314 10^3/cmm (130-400) 05/20/22 05:09 MPV 10.2 fL (7.4-10.4) 05/20/22 05:09 Neut % (Auto) 74.5 % 05/15/22 10:10 Lymph % (Auto) 17.2 % 05/15/22 10:10 [place] % (Auto) 5.3 % 05/15/22 10:10 Eos % (Auto) 2.3 % 05/15/22 10:10 Baso % (Auto) 0.4 % 05/15/22 10:10 Neut # (Auto) 5.61 10^3/uL (1.8-7.7) 05/15/22 10:10 Lymph # (Auto) 1.3 10^3/uL (0.8-4.8) 05/15/22 10:10 [place] # (Auto) 0.4 10^3/uL (0.2-0.9) 05/15/22 10:10 Eos # (Auto) 0.2 10^3/uL (0.0-0.8) 05/15/22 10:10 Baso # (Auto) 0.0 10^3/uL (0.0-0.1) 05/15/22 10:10 Nucleated RBC % (auto) 0 % 05/15/22 10:10 Nucleated RBCs # 0.0 /100WBC 05/15/22 10:10 Sodium 136 mmol/L (136-145) 05/15/22 10:10 Potassium 4.1 mmol/L (3.5-5.1) 05/15/22 10:10 Chloride 102 mmol/L (98-107) 05/15/22 10:10 Carbon Dioxide 25 mmol/L (22-29) 05/15/22 10:10 Anion Gap 13.1 (5-19) 05/15/22 10:10 BUN 10 mg/dL (6-20) 05/15/22 10:10 Creatinine 0.8 mg/dL (0.5-0.9) 05/15/22 10:10 GFR Calculation 77.6 mL/min (90-130) L 05/15/22 10:10 Glucose 91 mg/dL (65-115) 05/15/22 10:10 Calculated Osmolality 281 mOsm/kg (285-295) L 05/15/22 10:10 Calcium 9.6 mg/dL (8.5-10.5) 05/15/22 10:10 Blood Type A Negative 05/15/22 10:10 Rho(D) Type Negative 05/15/22 10:10 Antibody Screen Negative 05/15/22 10:10 Vitals Last Vital Signs Temp 97.7 F 05/19/22 20:15 Pulse 88 05/20/22 00:05 Resp 15 05/20/22 00:05 BP 120/74 05/20/22 00:05 Pulse Ox 99 05/19/22 16:24 O2 Del Method 05/19/22 14:18 O2 Flow Rate 6 05/19/22 13:47 Discharge Plan Discharge Patient Disposition: Home Condition: Stable Prescriptions: New ibuprofen 800 mg Tablet 800 mg PO Q8H Qty: 30 0RF hydrocodone-acetaminophen 5-325 mg Tablet 1 tab PO Q4H PRN (Reason: Moderate To Severe Pain) Qty: 30 0RF docusate sodium 100 mg Capsule 100 mg PO BID Qty: 60 0RF Continued levothyroxine [Euthyrox] 75 mcg tablet 75 mcg PO DAILY zolpidem 10 mg tablet 10 mg PO BEDTIME PRN (Reason: Insomnia) pantoprazole 40 mg tablet,delayed release (DR/EC) 40 mg PO PRN PRN (Reason: Acid Reflux) Discharge Orders: Discharge Order (Routine); Ordered 05/20/22 Ordered By: Viry Johnson Patient Instructions: Laparoscopic Hysterectomy (GEN), OB Discharge Report, OB Food/Drug Interaction Guide, Opioid Safety Discharge Attestations Time Spent in Discharge Care*: less than 30 min Quality Metrics Clinical Quality Measures [ No reported AMI, CVA or VTE this stay] Coding Level of Care Code Acute Chg FW DC note Diagnoses Anemia D64.9 Abnormal uterine bleeding (AUB) N93.9
[2022-05-20 11:22] VITALS: BP 131/80; PULSE 87; RESP 16; TEMP 36.6
== END 2022-05-20 11:20 | disposition home or self-care (01) ==
LOC: OBGYN 13:08
PROVIDERS: Admitting Provider Obstetrics & Gynecology; PCP Nurse Practitioner Family; Visit Provider Obstetrics & Gynecology
PROC: 0UT9FZZ Resection of Uterus, Via Natural or Artificial Opening With Percutaneous Endoscopic Assistance (ICD-10-PCS; principal; 2022-05-19 10:00)
PROC: (CPT 58661; 2022-05-19 10:00)
DX: N93.9 Abnormal uterine and vaginal bleeding, unspecified (principal); D64.9 Anemia, unspecified; K66.0 Peritoneal adhesions (postprocedural) (postinfection); K21.9 Gastro-esophageal reflux disease without esophagitis; E03.9 Hypothyroidism, unspecified
CPT/HCPCS: 58552; 36415; 80048; 81025; 85025; 85027; 86850; 86900; 87086; 88307; 96374; 96376; G0378; J0131; J0690; J1100; J1170; J1200; J1885; J2250; J2405; J2704; J3010; J3490; J7030; J7121

== ENCOUNTER 2022-10-27 12:47 | Emergency (ER) | payer SELFPAY ==
[2022-10-27 12:54] VITALS: BP 161/94; PULSE 99; RESP 16; TEMP 36.7; O2SAT 98; BMI 34.3
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
[2022-10-27] MEDS: tetanus-dipt-pertussis 0.5 mL SDV IM (13:30)
[2022-10-27 13:38] VITALS: BP 161/94; PULSE 99; RESP 18; O2SAT 92
[2022-10-27 13:39] VITALS: BP 161/94; PULSE 99; RESP 18; O2SAT 92
== END 2022-10-27 13:39 | disposition home or self-care (01) ==
PROVIDERS: Emergency Provider Emergency Medicine; PCP Nurse Practitioner Family
DX: S80.212A Abrasion, left knee, initial encounter (principal); V94.89XA Other water transport accident, initial encounter; Z23 Encounter for immunization
CPT/HCPCS: 73562; 90471; 90715; 99283

== ENCOUNTER 2023-12-02 14:36 | Outpatient (CLI) | payer OTHER, SELFPAY ==
--- NOTE | 2023-12-02 15:14 | MM_ITS ---
WS: [id number] SCREENING DIGITAL TOMOSYNTHESIS MAMMOGRAM WITH CAD HISTORY: SCREEN COMPARISON: 09/05/2021 and 08/16/2020 Bilateral CC and MLO with tomosynthesis views submitted. Synthetic mammography reviewed. Computer aid ed detection analyzed. Breast composition: The breasts are heterogeneously dense, which may obscure small masses. No suspici ous masses, microcalcifications or architectural distortion. MM/[place] [id number] IMPRESSION: BI-RADS: 1-Negative FOLLOW UP: 1 Year Follow-up
== END 2023-12-02 14:37 | disposition home or self-care (01) ==
LOC: RAD 14:37
PROVIDERS: PCP Nurse Practitioner Family; Visit Provider Nurse Practitioner Family
DX: Z12.31 Encounter for screening mammogram for malignant neoplasm of breast (principal)
CPT/HCPCS: 77063; 77067

== ENCOUNTER 2024-12-04 12:33 | Outpatient (CLI) | payer OTHER, SELFPAY ==
--- NOTE | 2024-12-04 12:40 | MM_ITS ---
WS: [id number] BILATERAL 3D TOMOSYNTHESIS DIGITAL SCREENING MAMMOGRAPHY WITH CAD CLINICAL INFORMATION: SCREENING HISTORY: Screening mammogram. No current complaints. COMPARISON: 2023 TECHNIQUE: Bilateral CC and MLO views. FINDINGS: The breasts are composed of heterogeneous fibroglandular density tissue, which can limit the detection of small underlying mass lesions. No suspicious mass, asymmetry, calcifications, or architectural distortion. No evidence of malignancy. MM/MM scr tomosynthesis [id number] IMPRESSION: DENSITY: The breasts are heterogeneously dense, which may obscure small masses. BI-RADS: 1 - Negative FOLLOW UP: 1 Year Follow-up Recommend return to annual screening mammography.
== END 2024-12-04 12:34 | disposition home or self-care (01) ==
LOC: RAD 12:34
PROVIDERS: PCP Nurse Practitioner Family; Visit Provider Nurse Practitioner Family
DX: Z12.31 Encounter for screening mammogram for malignant neoplasm of breast (principal); R92.323 Mammographic fibroglandular density, bilateral breasts; R92.333 Mammographic heterogeneous density, bilateral breasts
CPT/HCPCS: 77063; 77067